=== PATIENT | female | born 1985 | race Two or more races ===

== ENCOUNTER 2019-03-07 08:40 | Inpatient (IN) | payer OTHER ==
[2019-03-07] MEDS ORDERED: BETAMET ACET/BETAMET NA PH 30 MG/5 ML VIAL IM ONE (08:59)
[2019-03-07] MEDS ORDERED: DEXTROSE 5%-LACTATED RINGERS 1,000 ML IV SCH (09:00)
[2019-03-07] MEDS ORDERED: AMPICILLIN - 2 GM in SODIUM CHLORIDE 100 ML IVPB ONE (09:00)
[2019-03-07] MEDS ORDERED: AMPICILLIN SODIUM 2 GM VIAL ONE (09:15)
[2019-03-07] MEDS ORDERED: BETAMET ACET/BETAMET NA PH 30 MG/5 ML VIAL ONE (09:15)
[2019-03-07 09:33] LABS: BASO % 0.4 % (0-2.0); EOS % 1.4 % (0-4.5); HEMATOCRIT 30.4 % (32.4-45.2); HEMOGLOBIN 9.9 GM/dL (10.7-15.3); LYMPH % 22.7 % (8-40); MCH 28.9 pg (25.7-33.7); MCHC 32.7 g/dl (32.0-36.0); MEAN CELL VOLUME 88.3 fl (80-96); MEAN PLT VOLUME 10.3 fl (7.5-11.1); MONO % 4.6 % (3.8-10.2); NEUT % 70.9 % (42.8-82.8); PLATELET COUNT 229 K/MM3 (134-434); RBC 3.44 M/mm3 (3.60-5.2); RDW 13.6 % (11.6-15.6); WHITE BLOOD COUNT 5.8 K/mm3 (4.0-10.0)
[2019-03-07 09:36] VITALS: BMI 23.9
[2019-03-07 09:49] LABS: INR 0.97 (0.83-1.09); PROTHROMBIN TIME (PATIENT) 11.4 SEC (9.7-13.0)
[2019-03-07 09:52] LABS: ACTIVATED PTT 31.6 SECONDS (25.2-36.5)
[2019-03-07 09:57] LABS: ANION GAP 9 MMOL/L (8-16); BLOOD UREA NITROGEN 8 mg/dL (7-18); CALCIUM 7.3 mg/dL (8.5-10.1); CHLORIDE 108 mmol/L (98-107); CO2 24 mmol/L (21-32); CREATININE 0.5 mg/dL (0.55-1.3); GLUCOSE,RANDOM 146 mg/dL (74-106); POTASSIUM 3.5 mmol/L (3.5-5.1); SODIUM 141 mmol/L (136-145)
--- NOTE | 2019-03-07 11:34 | HP ---
Past Medical History - Primary Care Physician PCP:: Trevor Thompson - Admission Chief Complaint: 25 weeks, short cervix History of Present Illness: 33 yo f , 25.4 weeks by early sono, one previous c/s referred by DR Parikh [facility] for admission for short cervix, cx 35mm by sono, no rom, no bleeding History Source: Patient Limitations to Obtaining History: No Limitations - Past Medical History ...: 2 ...Para: 1 ...Term: 1 ...LMP: 09/09/18 ... Weeks Gestation by Dates: 25.4 ...EDC by Dates: 06/16/19 ...EDC by Sono: 06/16/19 - Past Surgical History Past Surgical History: Yes: Hx Myomectomy: No Hx Transabdominal Cerclage: No - Smoking History Smoking history: Never smoked - Alcohol/Substance Use Hx Alcohol Use: No - Social History History of Recent Travel: No Home Medications - Allergies Allergies/Adverse Reactions: Allergies Allergy/AdvReac Type Severity Reaction Status Date / Time No Known Allergies Allergy Verified 06/09/15 10:18 - Home Medications Home Medications: Ambulatory Orders Vitamin Tablet 1 tab PO DAILY 03/07/19 Review of Systems - Review of Systems Constitutional: reports: No Symptoms Eyes: reports: No Symptoms HENT: reports: No Symptoms Neck: reports: No Symptoms Cardiovascular: reports: No Symptoms Respiratory: reports: No Symptoms Gastrointestinal: reports: No Symptoms Genitourinary: reports: No Symptoms Breasts: reports: No Symptoms Reported Musculoskeletal: reports: No Symptoms Integumentary: reports: No Symptoms Neurological: reports: No Symptoms Endocrine: reports: No Symptoms Hematology/Lymphatic: reports: No Symptoms Psychiatric: reports: No Symptoms Physical Exam - Maternity Vital Signs: Vital Signs Temperature 98.0 F 03/07/19 10:00 Pulse Rate 91 H 03/07/19 10:00 Respiratory Rate 20 03/07/19 10:00 Blood Pressure 101/46 L 03/07/19 10:00 O2 Sat by Pulse Oximetry (%) Constitutional: Yes: Well Nourished, No Distress, Calm Eyes: Yes: WNL, Conjunctiva Clear, EOM Intact HENT: Yes: WNL, Atraumatic, Normocephalic Neck: Yes: WNL, Supple, Trachea Midline Cardiovascular: Yes: WNL, Regular Rate and Rhythm Breast(s): Yes: WNL - Abdominal Exam/OB Fundal Height: 26 Number of Fetuses: Single Contractions: No Intensity: Unaware Monitor Mode: External Heart Rate Location: [facility] Category: II Decelerations: None - Vaginal Exam/OB Vaginal Bleediing: No Speculum Exam: Yes Dilatation (cm): closed Amniotic Membrane Status: Intact Station: -4 - Physical Exam Extremities: Yes: WNL Edema: No Deep Tendon Reflex Grade: Normal +2 - Labs Lab Results: CBC, BMP 03/07/19 09:11 03/07/19 09:11 Hemorrhage Risk Assessment - Risk Factors Medium Risk Factors: Yes: None High Risk Factors: Yes: None Risk Score: 1 Risk Level: Medium Risk Problem List - Problems (1) with 25 completed weeks gestation Code(s): Z3A.25 - 25 WEEKS GESTATION OF (2) Short cervix affecting Code(s): O26.879 - CERVICAL SHORTENING, UNSPECIFIED TRIMESTER (3) Cervical funneling affecting Code(s): O34.30 - MATERNAL CARE FOR CERVICAL INCOMPETENCE, UNSP TRIMESTER Qualifiers: Trimester: second trimester Qualified Code(s): O34.32 - Maternal care for cervical incompetence, second trimester (4) Previous section complicating Code(s): O34.219 - MATERNAL CARE FOR UNSP TYPE SCAR FROM PREVIOUS DEL Assessment/Plan admit [facility] transfer to [facility] tried , spoke to DR Rock,did not accep [facility] contacted , accepted transfer, patienr agreed to be transfer
[2019-03-07 12:18] VITALS: BP 90/52; PULSE 89; TEMP 98
[2019-03-07] MEDS ORDERED: AMPICILLIN - 1 GM in SODIUM CHLORIDE 100 ML IVPB SCH (13:00)
== END 2019-03-07 12:37 | disposition short-term general hospital (02) | DRG 566 ==
LOC: UNDOADMIN 08:40 → JDEL 08:40 → JLDR 08:40 → EDSTATUS 10:44 → JLDR 11:15
PROVIDERS: ADMIT Obstetrics & Gynecology; ATTEND Obstetrics & Gynecology
DX: O26.872 Cervical shortening, second trimester (principal); O34.32 Maternal care for cervical incompetence, second trimester; Z3A.25 25 weeks gestation of pregnancy
CPT/HCPCS: 36415; 80048; 85025; 85610; 85730; 86593; 86850; 86900; 86901; 96372